=== PATIENT | female | born 2000 | race Caucasian/White ===

== ENCOUNTER 2022-04-02 07:48 | Outpatient (CLI) | payer BC ==
[2022-04-02 14:20] LABS: SARS-CoV-2 PCR by NAA Not Detected (NotDetected)
== END 2022-04-02 07:49 | disposition home or self-care (01) ==
LOC: CSHLAB 07:48
PROVIDERS: ATTEND Advanced Practice Midwife
DX: Z20.822 Contact with and (suspected) exposure to COVID-19 (principal)
CPT/HCPCS: U0003; U0005

== ENCOUNTER 2022-04-05 07:57 | Day surgery (SDC) | payer BC ==
[2022-04-05] MEDS ORDERED: Acetaminophen 500 MG TAB PO SCH (08:30)
[2022-04-05 08:42] VITALS: BMI 27.6
[2022-04-05] MEDS ORDERED: Iron Sucrose Complex 500 MG in Sodium Chloride 0.9% 250 ML 250 ML IVPB SCH (09:00)
== END 2022-04-05 14:10 | disposition home or self-care (01) ==
LOC: CSHLD/OP 07:57
PROVIDERS: ATTEND Advanced Practice Midwife
DX: O99.019 Anemia complicating pregnancy, unspecified trimester (principal); Z79.890 Hormone replacement therapy; Z79.899 Other long term (current) drug therapy
CPT/HCPCS: 96361; 96365; 96366; 99283; J1756; J7050

== ENCOUNTER 2022-04-29 18:46 | Day surgery (SDC) | payer BC ==
[2022-04-29 19:13] VITALS: BMI 27.4
[2022-04-29] MEDS ORDERED: hydrALAZINE 20 MG/ML VIAL SLOW IVP PRN (19:40)
[2022-04-29 20:07] LABS: Fetal Membranes Rupture No Membranes Rupture (No Rupture)
== END 2022-04-29 20:20 | disposition home or self-care (01) ==
LOC: CSHLD/OP 18:46
PROVIDERS: ATTEND Obstetrics & Gynecology
DX: O47.1 False labor at or after 37 completed weeks of gestation (principal); O99.613 Diseases of the digestive system complicating pregnancy, third trimester; K21.9 Gastro-esophageal reflux disease without esophagitis; O99.283 Endocrine, nutritional and metabolic diseases complicating pregnancy, third trimester; E07.9 Disorder of thyroid, unspecified; Z3A.38 38 weeks gestation of pregnancy; Z79.890 Hormone replacement therapy; Z79.899 Other long term (current) drug therapy
CPT/HCPCS: 84112; 99284

== ENCOUNTER 2022-05-02 17:15 | Inpatient (IN) | payer BC ==
[2022-05-02 17:45] VITALS: BMI 27.3
[2022-05-02] MEDS ORDERED: hydrALAZINE 20 MG/ML VIAL SLOW IVP PRN (18:35)
[2022-05-02] MEDS ORDERED: Lactated Ringer's 1,000 ML IV SCH (18:45)
[2022-05-02] MEDS ORDERED: Acetaminophen 500 MG TAB PO SCH (18:45)
[2022-05-02] MEDS ORDERED: Penicillin G Potassium 5 MILL.UNITS VIAL ONE (19:16)
[2022-05-02] MEDS ORDERED: Fentanyl 2 mcg/Bup 0.1% Cadd 100 ML ONE (19:54)
[2022-05-02 20:06] LABS: #Monocytes 0.8 10x3/uL (0.0-1.1); #Neutrophils 9.2 10x3/uL (1.5-8.4); %Basophils 0.2 % (0.0-2.0); %Eosinophils 0.3 % (0.0-6.0); %Lymphocytes 15.2 % (18.0-47.0); %Neutrophils 76.9 % (40.0-75.0); Hemoglobin 11.1 g/dL (12.0-15.5); Mean Corpuscular HGB CONC 34.7 g/dL (32.0-36.0); Mean Corpuscular Hemoglobin 30.1 pg (27.0-33.0); Mean Corpuscular Volume 86.7 fl (81.6-98.3); Mean Platelet Volume 10.4 fl (7.4-10.4); Platelet Count 290 10x3/uL (150-450); RBC Distribution Width 18.7 % (11.5-14.5); Red Blood Cell (RBC) Count 3.69 10x6/uL (3.90-5.03)
[2022-05-02 20:18] LABS: ALT (SGPT) 17 U/L (8-55); AST (SGOT) 19 U/L (5-34); Albumin 3.4 g/dL (3.5-5.0); Alkaline Phosphatase 149 U/L (40-110); Anion Gap 15 mmol/L (10-20); BUN (Urea Nitrogen) 7 mg/dL (7.0-18.7); Bilirubin, Total 0.3 mg/dL (0.2-1.2); Calc. Creatinine Clearance 139 mL/min (70-130); Calcium 9.2 mg/dL (7.8-10.44); Carbon Dioxide 17 mmol/L (22-29); Chloride 108 mmol/L (98-107); Glucose 78 mg/dL (70-105); Potassium 3.7 mmol/L (3.5-5.1); Protein, Total 6.4 g/dL (6.0-8.3); Sodium 136 mmol/L (136-145)
[2022-05-02] MEDS ORDERED: Ibuprofen 800 MG TAB PO PRN (20:20)
[2022-05-02] MEDS ORDERED: Misoprostol 200 MCG TAB PR PRN (20:20)
[2022-05-02] MEDS ORDERED: Methylergonovine 0.2 MG/ML VIAL IM PRN (20:20)
[2022-05-02] MEDS ORDERED: Lidocaine 1% (PF) 30 ML VIAL SC PRN (20:20)
[2022-05-02] MEDS ORDERED: Promethazine HCl 25 MG/ML VIAL IM PRN ×2 (20:20→21:19)
[2022-05-02] MEDS ORDERED: Acetaminophen 500 MG TAB PO PRN (20:20)
[2022-05-02] MEDS ORDERED: Ondansetron PF 4 MG/2 ML Vial IVP PRN ×2 (20:20→21:19)
[2022-05-02] MEDS ORDERED: Carboprost 250 MCG/ML AMP IM PRN (20:20)
[2022-05-02] MEDS ORDERED: Penicillin G Potassium 5 MILL.UNITS in Sodium Chloride 0.9% 100 ML IVPB SCH (20:30)
[2022-05-02] MEDS ORDERED: NS w/ Oxytocin 30 units 500 ML IV SCH ×2 (20:30)
[2022-05-02] MEDS ORDERED: Naloxone HCl 0.4 mg/ml Vial IVP PRN ×2 (21:19)
[2022-05-02] MEDS ORDERED: Lactated Ringer's 500 ML IV PRN (21:19)
[2022-05-02] MEDS ORDERED: diphenhydrAMINE 50 MG/ML VIAL IVP PRN (21:19)
[2022-05-02] MEDS ORDERED: ePHEDrine Sulfate 50 MG/10 ML VIAL SLOW IVP PRN (21:19)
[2022-05-02] MEDS ORDERED: Moisturizing Cream (Eucerin) 113 GM JAR TOP PRN (21:19)
[2022-05-02] MEDS ORDERED: Acetaminophen 325 MG TAB PO PRN (21:19)
[2022-05-02] MEDS ORDERED: Communication Order-Pharmacy FS SCH (21:30)
[2022-05-02] MEDS ORDERED: Fentanyl 2 mcg/Bupivacaine 0.1% Cassette 100 ML EPIDURAL SCH (21:30)
[2022-05-02] MEDS ORDERED: Penicillin G 2.5 MILL.units 50 ML ONE (22:59)
[2022-05-02] MEDS: Penicillin G 2.5 MILL.units 2.5 MILL.UNITS in Premix Bag 1 BAG IVPB SCH (23:01)
[2022-05-02] MEDS: Lactated Ringer's 1,000 ML IV SCH (23:07)
[2022-05-02 23:24] LABS: SARS-CoV-2 NAA Rapid Test Not Detected (NotDetected)
[2022-05-03] MEDS: Penicillin G 2.5 MILL.units 2.5 MILL.UNITS in Premix Bag 1 BAG IVPB SCH (03:02)
[2022-05-03] MEDS ORDERED: Penicillin G 2.5 MILL.units 50 ML ONE (03:03)
[2022-05-03] MEDS ORDERED: Lidocaine 2% 10 ML INJ ONE (08:00)
[2022-05-03] MEDS ORDERED: Bupivacaine 0.25% HCL 30 ML VIAL ONE (08:00)
[2022-05-03] MEDS ORDERED: Ondansetron PF 4 MG/2 ML Vial IVP PRN (09:27)
[2022-05-03] MEDS ORDERED: Bisacodyl 10 MG SUPP PR PRN (09:27)
[2022-05-03] MEDS ORDERED: Misoprostol 200 MCG TAB VAG PRN (09:27)
[2022-05-03] MEDS ORDERED: Lanolin Ointment 7 GM TUBE TOP PRN (09:27)
[2022-05-03] MEDS ORDERED: hydrALAZINE 20 MG/ML VIAL SLOW IVP PRN (09:27)
[2022-05-03] MEDS ORDERED: Milk Of Magnesia 30 ML UDCUP PO PRN (09:27)
[2022-05-03] MEDS ORDERED: Benzocaine-Menthol 82.5 ML CAN TOP PRN (09:27)
[2022-05-03] MEDS ORDERED: Methylergonovine 0.2 MG/ML VIAL IM PRN (09:27)
[2022-05-03] MEDS ORDERED: NS w/ Oxytocin 30 units 500 ML IV SCH (09:30)
[2022-05-03] MEDS: HYDROcodone/Acetaminophen 5/325 mg Tablet PO PRN ×3 (09:55→19:13)
[2022-05-03] MEDS: Ibuprofen 800 MG TAB PO SCH ×2 (13:38→21:30)
[2022-05-03] MEDS: Ferrous Sulfate 325 MG TAB PO SCH (19:14)
[2022-05-03] MEDS: Docusate 100 MG CAP PO SCH (21:30)
[2022-05-04] MEDS: HYDROcodone/Acetaminophen 5/325 mg Tablet PO PRN ×3 (00:04→14:06)
[2022-05-04] MEDS: Ibuprofen 800 MG TAB PO SCH ×3 (06:20→21:00)
[2022-05-04] MEDS: Ferrous Sulfate 325 MG TAB PO SCH ×2 (07:52→17:11)
[2022-05-04] MEDS: Docusate 100 MG CAP PO SCH ×2 (09:24→21:01)
[2022-05-04] MEDS: Prenatal Vitamin 1 TAB PO SCH (09:24)
[2022-05-04] MEDS: Lactated Ringer's 1,000 ML IV SCH (10:44)
[2022-05-04] MEDS: Penicillin G 2.5 MILL.units 2.5 MILL.UNITS in Premix Bag 1 BAG IVPB SCH (10:44)
[2022-05-05] MEDS: HYDROcodone/Acetaminophen 5/325 mg Tablet PO PRN (00:12)
[2022-05-05] MEDS: Ibuprofen 800 MG TAB PO SCH ×2 (05:20→13:26)
[2022-05-05] MEDS: Ferrous Sulfate 325 MG TAB PO SCH (07:26)
[2022-05-05 07:38] VITALS: BP 120/67; TEMP 98.7
[2022-05-05] MEDS: Docusate 100 MG CAP PO SCH (08:22)
[2022-05-05] MEDS: Prenatal Vitamin 1 TAB PO SCH (08:22)
== END 2022-05-05 16:15 | disposition home or self-care (01) | DRG 807 ==
LOC: CSHLD/OP 17:15 → CSHLD 19:14 → EEVIPCON 19:14 → CSHPP 05-03 12:25
PROVIDERS: ADMIT Obstetrics & Gynecology; ATTEND Obstetrics & Gynecology
PROC: 10E0XZZ Delivery of Products of Conception, External Approach (ICD-10-PCS; principal; 2022-05-03)
PROC: 0KQM0ZZ Repair Perineum Muscle, Open Approach (ICD-10-PCS; 2022-05-03)
PROC: 10907ZC Drainage of Amniotic Fluid, Therapeutic from Products of Conception, Via Natural or Artificial Opening (ICD-10-PCS; 2022-05-03)
DX: O99.284 Endocrine, nutritional and metabolic diseases complicating childbirth (principal); Z37.0 Single live birth; O69.81X0 Labor and delivery complicated by cord around neck, without compression, not applicable or unspecified; E03.9 Hypothyroidism, unspecified; O99.344 Other mental disorders complicating childbirth; F41.1 Generalized anxiety disorder; O76 Abnormality in fetal heart rate and rhythm complicating labor and delivery; O70.1 Second degree perineal laceration during delivery; F32.9 Major depressive disorder, single episode, unspecified; Z20.822 Contact with and (suspected) exposure to COVID-19; Z3A.39 39 weeks gestation of pregnancy; Z79.899 Other long term (current) drug therapy; Z79.890 Hormone replacement therapy; O32.8XX0 Maternal care for other malpresentation of fetus, not applicable or unspecified; O69.89X0 Labor and delivery complicated by other cord complications, not applicable or unspecified
CPT/HCPCS: 51702; 80053; 85025; 99285; J2405; J2540; J2590; J7120; S0020

== ENCOUNTER 2023-06-03 08:37 | Emergency (ER) | payer BC, OTHER ==
[2023-06-03 09:51] LABS: #Eosinphils 0.1 10x3/uL (0.0-0.5); #Monocytes 0.4 10x3/uL (0.0-1.1); #Neutrophils 2.2 10x3/uL (1.5-8.4); %Basophils 0.4 % (0.0-2.0); %Eosinophils 1.1 % (0.0-6.0); %Lymphocytes 40.4 % (18.0-47.0); %Monocytes 9.4 % (0.0-10.0); %Neutrophils 48.5 % (40.0-75.0); Hemoglobin 11.5 g/dL (12.0-15.5); Mean Corpuscular HGB CONC 33.2 g/dL (32.0-36.0); Mean Corpuscular Hemoglobin 29.7 pg (27.0-33.0); Mean Corpuscular Volume 89.4 fl (81.6-98.3); Mean Platelet Volume 9.8 fl (7.4-10.4); Platelet Count 269 10x3/uL (150-450); RBC Distribution Width 12.9 % (11.5-14.5); Red Blood Cell (RBC) Count 3.87 10x6/uL (3.90-5.03); White Blood Cell (WBC) Count 4.6 10x3/uL (3.5-10.5)
[2023-06-03 10:08] LABS: ALT (SGPT) 12 U/L (8-55); AST (SGOT) 16 U/L (5-34); Albumin 4.2 g/dL (3.5-5.0); Alkaline Phosphatase 82 U/L (40-110); Anion Gap 14 mmol/L (10-20); BUN (Urea Nitrogen) 9 mg/dL (7.0-18.7); Bilirubin, Total 0.2 mg/dL (0.2-1.2); CK (CPK) 75 U/L (29-168); Calc. Creatinine Clearance 0 mL/min (70-130); Calcium 8.9 mg/dL (7.8-10.44); Carbon Dioxide 22 mmol/L (22-29); Chloride 105 mmol/L (98-107); Estimated GFR 98; Globulin 2.7 g/dL (2.4-3.5); Glucose 84 mg/dL (70-105); Lipase 23 U/L (8-78); Potassium 3.9 mmol/L (3.5-5.1); Protein, Total 6.9 g/dL (6.0-8.3); Sodium 137 mmol/L (136-145)
== END 2023-06-03 11:00 | disposition home or self-care (01) ==
LOC: CSHERS 08:37
DX: R07.89 Other chest pain (principal); K21.9 Gastro-esophageal reflux disease without esophagitis
CPT/HCPCS: 36415; 71045; 80053; 82550; 83690; 84484; 85025; 93005